=== PATIENT | male | born 1955 | race Caucasian/White ===

== ENCOUNTER → 2018-12-21 | Outpatient (CLI) | payer BC ==
[~2018-12-21] MED LIST: ASPIRIN EC81 M1 PO; CALCIUM PO; CARISOPRODOL 3350 MG PO; CRESTOR10 MG PO; DOCUSATE SODIU100 MG PO; FAMOTIDINE20 MG PO; FENOFIBRATE160 MG PO; FISH OIL 1,2001 EAC4 PO; GLUMETZA500 PO; HAIR, SKIN & N1 EAC1 PO; HYDROCODON-ACE1 EAC5 PO; IBUPROFEN 200200 M1 PO; PERCOCET 10-321 EACH PO; ROBAXIN 750 MG750 M1 PO; TRICOR145 MG PO
== END ==
LOC: M.ULTRA 09:13
DX: E03.9 Hypothyroidism, unspecified (principal)

== ENCOUNTER → 2019-09-10 | Outpatient (CLI) | payer BC | LOC: M.ULTRA 10:24 | DX: R10.13 Epigastric pain (principal) ==